=== PATIENT | female | born 1990 | race Caucasian/White ===

== ENCOUNTER 2017-06-16 07:24 | Inpatient (IN) | payer OTHER ==
[2017-06-16] MEDS: Lactated Ringer's 1,000 ML IV SCH ×3 (08:10→20:18)
[2017-06-16 08:18] VITALS: BMI 27.4
[2017-06-16] MEDS ORDERED: Bicitra 30 ML UDCUP PO SCH ×2 (08:45→09:00)
[2017-06-16] MEDS ORDERED: Ondansetron HCl/PF 4 MG/2 ML Vial IVP PRN ×2 (08:48→13:17)
[2017-06-16] MEDS ORDERED: Promethazine HCl 25 MG/ML VIAL IM PRN ×2 (08:48→13:17)
[2017-06-16] MEDS ORDERED: CEFAZOLIN/Water 2 GM/20 ML SYRINGE SLOW IVP SCH (09:00)
--- NOTE | 2017-06-16 09:00 | PDOC.LDHP ---
Labor and Delivery H&P Chief complaint: scheduled section HPI: Alejandrina Smith is a 27 year old @ 39.0 weeks who presents for scheduled repeat x 3. She has no current complaints. She denies contractions, vaginal bleeding, decrease in movements. Current gestational age (weeks): 39 (c/w 12 week sono) Due date: 06/23/17 Dating criteria: first trimester ultrasound Grav: 4 Para: 3 OB History Details: Late/inconsistent care. Gestational diabetes in prior . Current complications: none Abnormal US findings: No Current medications: pre-amalia vitamins Previous surgical history: low tranverse CS Social history: none - Physical Exam Vital signs reviewed and normal: yes General: NAD Heart: RRR Lungs: CTAB Abdomen: NTTP Extremeties: no edema FHT: category 1 - OB Labs Blood type: unknown RH: unknown Antibody Screen: unknown HIV: negative RPR: negative HEPSAg: unknown 1 hour GCT: unknown 3 hour GTT: unknown GBS: positive Urine drug screen: not done - Assessment L&D Assessment: scheduled repeat section - Plan Plan: admit to L&D -: Due to history of inconsistent care, will order UDS, Hep B surface antigen, Antibody screen, and Rubella IgG. <Jaycee Kimball - Last Filed: 06/16/17 09:06> <Nabeel Youngblood - Last Filed: 06/16/17 11:01> Allergies/Adverse Reactions: Allergies Allergy/AdvReac Type Severity Reaction Status Date / Time No Known Allergies Allergy Unverified 06/16/17 08:16 Attending Addendum - Attending Addendum I personally evaluated the patient and discussed the management with Dr. Patel. Steffen ann reviewed the H&P and it is repeated by me. I agree with the History, Examination, Assessment and Plan documented above with any addition or exceptions noted below. Admit for scheduled repeat at 39 weeks. <Nabeel Youngblood - Last Filed: 06/16/17 11:01>
[2017-06-16 10:31] LABS: Amphetamine Not Detected (NotDetected); Methadone Not Detected (NotDetected); Methamphetamine Not Detected (NotDetected)
[2017-06-16 10:52] LABS: #Eosinphils 0.1 thou/uL (0.0-0.7); #Lymphocytes 1.6 thou/uL (1.20-3.40); #Monocytes 0.4 thou/uL (0.11-0.59); #Neutrophils 6.2 thou/uL (1.40-6.50); %Basophils 0.1 % (0.0-1.0); %Eosinophils 0.9 % (0.0-10.0); %Lymphocytes 18.9 % (21.0-51.0); %Monocytes 5.4 % (0.0-10.0); Hematocrit 34.7 % (36.0-47.0); Mean Platelet Volume 10.5 fL (7.4-10.4); Red Blood Cell (RBC) Count 3.69 mill/uL (4.20-5.40); White Blood Cell (WBC) Count 8.2 thou/uL (4.8-10.8)
[2017-06-16] MEDS ORDERED: Oxytocin 10 UNITS/ML VIAL ONE ×2 (11:20→12:45)
[2017-06-16] MEDS ORDERED: PHENYLEPHRINE-NS 100 MCG/ML 10 ML SYRINGE ONE ×2 (11:20→12:27)
[2017-06-16] MEDS ORDERED: Ondansetron HCl/PF 4 MG/2 ML Vial ONE (11:20)
[2017-06-16] MEDS ORDERED: Morphine PF 1 MG/ML SYR ONE (11:30)
[2017-06-16] MEDS ORDERED: ePHEDrine/0.9% NaCl/PF SYRINGE 50 mg/10 ml ONE (12:15)
[2017-06-16] MEDS ORDERED: Carboprost 250 MCG/ML AMP ONE (12:19)
[2017-06-16] MEDS ORDERED: Promethazine HCl 25 MG/ML VIAL ONE ×2 (12:27→12:31)
[2017-06-16] MEDS ORDERED: Diphenoxylate HCl/Atropine Tablet PO SCH (12:30)
[2017-06-16] MEDS ORDERED: Naloxone HCl 0.4 mg/ml Vial IV PRN (13:17)
[2017-06-16] MEDS ORDERED: Eucerin (Mineral Oil/Petrolatum,White) 30 gm Jar TOP PRN (13:17)
[2017-06-16] MEDS ORDERED: Promethazine HCl 25 MG SUPP PR PRN (13:17)
[2017-06-16] MEDS ORDERED: Naloxone HCl 0.4 mg/ml Vial IVP PRN ×2 (13:17)
[2017-06-16] MEDS ORDERED: diphenhydrAMINE 50 MG/ML VIAL IVP PRN (13:17)
[2017-06-16] MEDS ORDERED: Communication Order-Pharmacy FS SCH (13:30)
[2017-06-16] MEDS ORDERED: Carboprost 250 MCG/ML AMP IM SCH (13:45)
--- NOTE | 2017-06-16 14:27 | OP-2 ---
DATE OF PROCEDURE: 06/16/2017 RESIDENT SURGEON: Garfield Cueto M.D. ATTENDING SURGEON: Nabeel Youngblood M.D. [employer] SURGEON: Rolando Bermeo M.D. PROCEDURE: Elective repeat low transverse . PREOPERATIVE DIAGNOSES: 1. Term intrauterine . 2. Prior section x3. 3. Positive opioids, positive urine drug screen. 4. Late care. POSTOPERATIVE DIAGNOSES: 1. Term intrauterine , delivered. 2. Prior x3. 3. Positive urine drug screen. 4. Uterine atony requiring Methergine and Hemabate. ANESTHESIA: Spinal medications. INDICATIONS: The patient is a 27-year-old -0-0-3 at 39.0 weeks gestation who presents for an el ective repeat . PROCEDURE IN DETAIL: After risks, benefits, and alternatives were explained, the patient provided in formed consent. Preoperative antibiotics of Cefazolin 2 grams IV were given. The patient was taken to the operating room and spinal anesthesia was initiated. She was placed in the supine position wit h left lateral tilt and prepped and draped in the usual sterile fashion. A Pfannenstiel incision was made with a scalpel along the prior scar and carried down to the level of fascia which was sharply n icked. The fascial cut was extended bilaterally with curved Valdivia scissors. Inferior and superior ed ges of fascia were elevated with Nida clamps and the underlying rectus muscles were bluntly dissect ed. The recti muscles were divided digitally and retracted manually. The peritoneum was entered taran ntly and retracted manually. A small adhesion between the omentum and the uterus was noted and relea sed with Bovie cautery. An Pedro O retractor was inserted. A low transverse score was made with a scalpel and the uterus was entered in the midline with the scalpel. Clear fluid was seen. Hysteroto my was extended superiorly and inferiorly manually. Infant was noted to be in the vertex position an d was easily delivered with fundal pressure at 1214 hours. Apgars were 8 and 8. The cord was cut an d clamped and grossly normal male was handed to the awaiting team. Cord blood was obt ained. Placenta was manually extracted and found to be intact with a 3-vessel cord and later discard ed. Uterus was externalized and found to have significant apnea. The patient received Methergine IM . The uterus was then externalized and curetted with a dry lap. The hysterotomy was closed with a r unning locking 0 Monocryl suture. A small hemorrhage in the serosa was noted and closed with a runni ng nonlocking 3-0 chromic. The same area overlying the superior aspect of the right superior aspect of the hysterotomy also required a [id number]-[id number] suture applied with a 3-0 chromic. The uterus was reinternalized and found to have improved tone. Upon further inspection of the hysterotomy there wa s mild bleeding noted along the right edge of the hysterotomy. The uterus was reexternalized at whic h point the bleeding increased significantly. An O'Alamo stitch was used to ligate the right anterio r uterine artery to improve hemostasis. The stitch was performed using 0 Monocryl. Following placem ent of the stitch, hemostasis was achieved. The abdomen was suctioned free of clots. Again, the hys terotomy was noted to be hemostatic after reinternalization of the uterus. The fascia was closed wit h a running nonlocking 0 Vicryl suture. Subcutaneous tissue was irrigated and Bovie cautery was used to ligate any bleeding vessels. Subcutaneous tissue was closed using 0 chromic suture in a running fashion. Skin was reapproximated with 4-0 Monocryl suture in running fashion with Dermabond placed o roberto the incision. All counts were correct x3. The patient tolerated procedure well and went to the recovery room in stable condition. ESTIMATED BLOOD LOSS: 700 mL. COMPLICATIONS: None. SPECIMEN: Cord blood sent to lab for blood type. FINDINGS: 1. Grossly normal male infant with Apgars of 8 and 8, born at 1214 hours. 2. Grossly normal placenta with three-vessel cord discarded. DRAINS: Layton to gravity draining clear fluid. Dr. Youngblood was present for the entire procedure. Dr. Bermeo was present at the table until delivery of the infant.
[2017-06-16] MEDS ORDERED: Ketorolac Tromethamine 30 MG/ML VIAL ONE (15:29)
[2017-06-16] MEDS: Ketorolac Tromethamine 30 MG/ML VIAL IVP PRN ×2 (15:30→22:07)
[2017-06-16] MEDS ORDERED: Bisacodyl 10 MG SUPP PR PRN (16:09)
[2017-06-16] MEDS ORDERED: diphenhydrAMINE 25 MG CAP PO PRN (16:09)
[2017-06-16] MEDS ORDERED: Acetaminophen 325 MG TAB PO PRN (16:09)
[2017-06-16] MEDS ORDERED: Acetaminophen/Codeine 30-300mg Tablet PO PRN (16:09)
[2017-06-16] MEDS ORDERED: Simethicone Chewable 80 MG TAB PO PRN (16:09)
[2017-06-16] MEDS: Ibuprofen 800 MG TAB PO SCH (19:50)
[2017-06-16] MEDS: HYDROcodone/Acetaminophen 5/325 mg Tablet PO PRN (20:12)
[2017-06-17] MEDS: HYDROcodone/Acetaminophen 5/325 mg Tablet PO PRN ×4 (00:24→17:22)
[2017-06-17] MEDS: Lactated Ringer's 1,000 ML IV SCH (04:33)
[2017-06-17] MEDS: Ibuprofen 800 MG TAB PO SCH ×2 (04:36→13:37)
[2017-06-17 05:45] LABS: Hematocrit 27.1 % (36.0-47.0); Mean Platelet Volume 10.8 fL (7.4-10.4); Red Blood Cell (RBC) Count 2.87 mill/uL (4.20-5.40); White Blood Cell (WBC) Count 7.6 thou/uL (4.8-10.8)
[2017-06-17] MEDS: Ketorolac Tromethamine 30 MG/ML VIAL IVP PRN (05:57)
--- NOTE | 2017-06-17 08:30 | PDOC.PP ---
Post Progress Note Post Day #: 1 Subjective: Pt states that she feels well and that her pain is largely controlled. She has not attempted to ambulate as of yet. She is soaking though less than 1 pad per hour, has flatus, denies CP/SOB. She plans to bottle feed only PO intake tolerated: yes Flatus: yes Ambulation: no Vital Signs (12 hours) Temp Pulse Resp BP 06/17/17 07:49 98.3 F 85 20 99/54 L 06/17/17 07:30 98.3 F 85 20 06/17/17 04:30 97.9 F 85 16 99/51 L 06/17/17 00:20 98.9 F 85 18 95/54 L 06/16/17 21:15 98.7 F 95 18 112/55 L Weight Weight 68.039 kg - Physical Examination General: NAD Cardiovascular: RRR Deviation from normal: Systolic murmer Respiratory: clear to auscultation bilaterally Abdominal: + bowel sounds, lochia, no distention, appropriately TTP Extremities: negative homans (B) Skin: CS incision dry & intact Neurological: no gross focal deficits Psychiatric: A&Ox3, normal affect Result Diagrams: 06/17/17 05:05 Additional Labs: Post Labs Blood Type A2 POSITIVE 06/16/17 08:11 Hep Bs Antigen Non-Reactive S/CO (NonReactive) 06/16/17 08:11 (1) delivery delivered Code(s): O82 - ENCOUNTER FOR DELIVERY WITHOUT INDICATION Status: Acute Comment: Pt doing well post op. She will attempt to ambulate frequently today, pain control w/nsaids and norco prn. She is asking to go home today if possible. It appears that medically she is may be appropraite for dc. Discussed the fact that her baby was opiate positive and that case management may come see her prior to dc <Morales Patel - Last Filed: 06/17/17 10:30> Vital Signs (12 hours) Temp Pulse Resp BP 06/17/17 07:49 98.3 F 85 20 99/54 L 06/17/17 07:30 98.3 F 85 20 06/17/17 04:30 97.9 F 85 16 99/51 L 06/17/17 00:20 98.9 F 85 18 95/54 L Weight Weight 68.039 kg Result Diagrams: 06/17/17 05:05 Additional Labs: Post Labs Blood Type A2 POSITIVE 06/16/17 08:11 Hep Bs Antigen Non-Reactive S/CO (NonReactive) 06/16/17 08:11 <Nabeel Youngblood - Last Filed: 06/17/17 10:37> Attending Addendum - Attending Addendum I personally evaluated the patient and discussed the management with Dr. Patel. I agree with the History, Examination, Assessment and Plan documented above with any addition or exceptions noted below. CPS involvement can be pursued outpatient. The patient will follow with our clinic. If baby adn mother do well today, then discharge later today is possible. <Nabeel Youngblood - Last Filed: 06/17/17 10:37>
[2017-06-17] MEDS ORDERED: Adacel (T-DAP) 0.5 ML VIAL IM ONE (09:00)
[2017-06-17 17:22] VITALS: BP 130/61; TEMP 98.4
== END 2017-06-17 17:46 | disposition home or self-care (01) | DRG 765 ==
LOC: OBSVTOIN 07:24 → L&D 07:24 → INTOOBSV 07:24 → L&D 12:03 → 3SE 17:56
PROVIDERS: ADMIT Family Medicine; ATTEND Family Medicine
PROC: 10D00Z1 Extraction of Products of Conception, Low, Open Approach (ICD-10-PCS; principal; 2017-06-16)
PROC: 3E0T3BZ Introduction of Anesthetic Agent into Peripheral Nerves and Plexi, Percutaneous Approach (ICD-10-PCS; 2017-06-16)
PROC: 10907ZC Drainage of Amniotic Fluid, Therapeutic from Products of Conception, Via Natural or Artificial Opening (ICD-10-PCS; 2017-06-16)
DX: O62.2 Other uterine inertia (principal); O99.324 Drug use complicating childbirth; F11.90 Opioid use, unspecified, uncomplicated; O32.6XX0 Maternal care for compound presentation, not applicable or unspecified; Z3A.39 39 weeks gestation of pregnancy; Z37.0 Single live birth
CPT/HCPCS: 36415; 80306; 85025; 85027; 86762; 86850; 86900; 86901; 86905; 87340; J1885; J2210; J2274; J2405; J2550; J2590; J3490